=== PATIENT | male | born 1980 | race Caucasian/White ===

== ENCOUNTER 2020-09-03 12:30 | Inpatient (IN) | payer OTHER ==
[2020-09-03 13:57] VITALS: BMI 34.9
[2020-09-03] MEDS ORDERED: METHOCARBAMOL 500 MG TABLET PO PRN (14:20)
[2020-09-03] MEDS ORDERED: ACETAMINOPHEN 325 MG TABLET (FP) PO PRN ×2 (14:20)
[2020-09-03] MEDS ORDERED: MAG HYDROX/AL HYDROX/SIMETH 30 ML UNIT-DOSE CUP PO PRN (14:20)
[2020-09-03] MEDS ORDERED: ONDANSETRON *ODT* 4 MG TABLET SL PRN (14:20)
[2020-09-03] MEDS ORDERED: MENTHOL/PHENOL 1 EACH UD MM PRN (14:20)
[2020-09-03] MEDS ORDERED: MAGNESIUM CITRATE 300 ML BOTTLE PO PRN (14:20)
[2020-09-03] MEDS ORDERED: BISMUTH SUBSALICYLATE 524 MG/30 ML UD PO PRN (14:20)
[2020-09-03] MEDS ORDERED: MAGNESIUM HYDROX 2400MG/30ML ORAL SUSPENSION 30 ML CUP PO PRN (14:20)
[2020-09-03] MEDS ORDERED: NICOTINE POLACRILEX 2 MG GUM BUC PRN (14:20)
[2020-09-03] MEDS ORDERED: IBUPROFEN 400 MG TABLET (FP) PO PRN (14:20)
[2020-09-03] MEDS ORDERED: chlordiazePOXIDE HCL 25 MG CAPSULE PO PRN (14:26)
[2020-09-03 17:15] LABS: HEMATOCRIT 41.1 % (35.4-49); HEMOGLOBIN 13.1 GM/dL (11.7-16.9); MCH 25.5 pg (25.7-33.7); MCHC 31.9 g/dl (32.0-35.9); MEAN PLT VOLUME 9.7 fl (7.5-11.1); PLATELET COUNT 243 K/MM3 (134-434); RBC 5.14 M/mm3 (4.00-5.60); RDW 22.1 % (11.9-15.9); WHITE BLOOD COUNT 10.2 K/mm3 (4.0-10.0)
[2020-09-03 17:17] LABS: POTASSIUM 4.2 mmol/L (3.5-5.1)
[2020-09-03 17:21] LABS: CALCIUM 8.9 mg/dL (8.5-10.1)
[2020-09-03 17:22] LABS: ALBUMIN 3.8 g/dl (3.4-5.0); BLOOD UREA NITROGEN 8.3 mg/dL (7-18)
[2020-09-03 17:27] LABS: BILIRUBIN,TOTAL 0.3 mg/dL (0.2-1); TOT PROT 8.7 g/dl (6.4-8.2)
[2020-09-03] MEDS: hydrOXYzine PAMOATE 25 MG CAPSULE (FP) PO SCH ×2 (17:41→22:13)
[2020-09-03] MEDS: chlordiazePOXIDE HCL 25 MG CAPSULE PO SCH ×2 (17:42→22:13)
[2020-09-03 18:12] LABS: HIV INTERPRETATION NEGATIVE (NEGATIVE)
[2020-09-03] MEDS: THIAMINE HCL 100 MG TABLET (FP) PO SCH (22:13)
[2020-09-03] MEDS: MELATONIN 5 MG TABLETS PO SCH (22:37)
[2020-09-04] MEDS: hydrOXYzine PAMOATE 25 MG CAPSULE (FP) PO SCH ×5 (05:31→22:08)
[2020-09-04] MEDS: chlordiazePOXIDE HCL 25 MG CAPSULE PO SCH ×4 (05:31→22:08)
[2020-09-04] MEDS: PRENATAL VITAMINS W/ FOLIC ACID TABLET (FP) PO SCH (10:04)
[2020-09-04] MEDS: NICOTINE 21 MG/24 HOURS TOPICAL PATCH TD SCH (10:04)
[2020-09-04] MEDS: THIAMINE HCL 100 MG TABLET (FP) PO SCH (22:08)
[2020-09-04] MEDS: MELATONIN 5 MG TABLETS PO SCH (22:08)
[2020-09-05] MEDS: hydrOXYzine PAMOATE 25 MG CAPSULE (FP) PO SCH ×5 (05:46→22:20)
[2020-09-05] MEDS: chlordiazePOXIDE HCL 25 MG CAPSULE PO SCH ×4 (05:47→22:20)
[2020-09-05] MEDS: PRENATAL VITAMINS W/ FOLIC ACID TABLET (FP) PO SCH (10:12)
[2020-09-05] MEDS: NICOTINE 21 MG/24 HOURS TOPICAL PATCH TD SCH (10:14)
[2020-09-05] MEDS: MELATONIN 5 MG TABLETS PO SCH (22:20)
[2020-09-05] MEDS: THIAMINE HCL 100 MG TABLET (FP) PO SCH (22:20)
[2020-09-06] MEDS ORDERED: chlordiazePOXIDE HCL 10 MG CAPSULE PO PRN
[2020-09-06] MEDS: chlordiazePOXIDE HCL 10 MG CAPSULE PO SCH ×4 (05:45→22:32)
[2020-09-06] MEDS: hydrOXYzine PAMOATE 25 MG CAPSULE (FP) PO SCH ×5 (05:45→22:32)
[2020-09-06] MEDS: PRENATAL VITAMINS W/ FOLIC ACID TABLET (FP) PO SCH (10:22)
[2020-09-06] MEDS: NICOTINE 21 MG/24 HOURS TOPICAL PATCH TD SCH (10:23)
[2020-09-06] MEDS: THIAMINE HCL 100 MG TABLET (FP) PO SCH (22:32)
[2020-09-06] MEDS: MELATONIN 5 MG TABLETS PO SCH (22:32)
[2020-09-07] MEDS: chlordiazePOXIDE HCL 10 MG CAPSULE PO SCH ×2 (06:32→18:09)
[2020-09-07] MEDS: hydrOXYzine PAMOATE 25 MG CAPSULE (FP) PO SCH ×5 (06:33→22:33)
[2020-09-07] MEDS: NICOTINE 21 MG/24 HOURS TOPICAL PATCH TD SCH (10:22)
[2020-09-07] MEDS: PRENATAL VITAMINS W/ FOLIC ACID TABLET (FP) PO SCH (10:22)
[2020-09-07] MEDS ORDERED: cloNIDine HCL 0.1 MG TABLET PO PRN (10:40)
[2020-09-07 16:15] LABS: EPI CELLS 5 /uL (0-25.1); HYALINE CASTS 0 /uL (0-3.1); URINE APPEARANCE CLEAR; URINE BACTERIA 93 /uL (0-1359); URINE BILIRUBIN NEGATIVE (NEGATIVE); URINE COLOR YELLOW; URINE GLUCOSE (UA) NEGATIVE (NEGATIVE); URINE KETONE NEGATIVE (NEGATIVE); URINE LEUK ESTERASE TRACE (NEGATIVE); URINE NITRITE NEGATIVE (NEGATIVE); URINE PROTEIN NEGATIVE (NEGATIVE); URINE RBC 1 /uL (0-23.9); URINE UROBILINOGEN 0.2 mg/dL (0.2-1.0); URINE WBC 15 /uL (0-25.8)
[2020-09-07] MEDS: MELATONIN 5 MG TABLETS PO SCH (22:33)
[2020-09-07] MEDS: THIAMINE HCL 100 MG TABLET (FP) PO SCH (22:33)
[2020-09-08] MEDS ORDERED: chlordiazePOXIDE HCL 10 MG CAPSULE PO ONE (05:00)
[2020-09-08] MEDS: hydrOXYzine PAMOATE 25 MG CAPSULE (FP) PO SCH (06:07)
[2020-09-08 11:17] VITALS: BP 123/66; PULSE 109; TEMP 97.8
== END 2020-09-08 10:20 | disposition home or self-care (01) | DRG 775 ==
LOC: YASAS 12:30 → Y6N 15:58
PROVIDERS: ADMIT Allergy & Immunology; ATTEND Allergy & Immunology
PROC: HZ2ZZZZ Detoxification Services for Substance Abuse Treatment (ICD-10-PCS; principal; 2020-09-03)
DX: F10.230 Alcohol dependence with withdrawal, uncomplicated (principal); F17.213 Nicotine dependence, cigarettes, with withdrawal; F19.24 Other psychoactive substance dependence with psychoactive substance-induced mood disorder; Z98.84 Bariatric surgery status
CPT/HCPCS: 36415; 80053; 81003; 85027; 85660; 86780; 87389; 93005; 93010; C9803; U0003

== ENCOUNTER 2020-12-18 15:05 | Emergency (ER) | payer OTHER ==
[2020-12-18 15:15] VITALS: BP 127/84; PULSE 92; TEMP 98.3; BMI 34.9
[2020-12-18] MEDS ORDERED: KETOROLAC TROMETHAMINE 30 MG/1 ML VIAL IM ONE (15:37)
[2020-12-18] MEDS ORDERED: METHOCARBAMOL 500 MG TABLET PO ONE (15:37)
[2020-12-18] MEDS ORDERED: METHOCARBAMOL 500 MG TABLET ONE (15:39)
[2020-12-18] MEDS ORDERED: KETOROLAC TROMETHAMINE 30 MG/1 ML VIAL ONE (15:39)
== END 2020-12-18 16:03 | disposition home or self-care (01) ==
LOC: JERFT 15:05
PROC: 3E0233Z Introduction of Anti-inflammatory into Muscle, Percutaneous Approach (ICD-10-PCS; principal; 2020-12-18)
DX: M25.60 Stiffness of unspecified joint, not elsewhere classified (principal)
CPT/HCPCS: 99284-25

== ENCOUNTER 2022-09-18 14:17 | Observation (INO) | payer OTHER ==
[2022-09-18 16:16] LABS: EOS % 0.4 % (0-4.5); HEMATOCRIT 21.6 % (35.4-49); LYMPH % 28.7 % (8-40); MCHC 28.2 g/dl (32.0-35.9); MEAN CELL VOLUME 58.9 fl (80-96); MEAN PLT VOLUME 8.1 fl (7.5-11.1); MONO % 9.9 % (3.8-10.2); PLATELET COUNT 199 10^3/uL (134-434); RBC 3.67 M/mm3 (4.00-5.60); RDW 24.9 % (11.9-15.9); WHITE BLOOD COUNT 5.5 K/mm3 (4.0-10.0)
[2022-09-18 16:19] LABS: MCH 16.6 pg (25.7-33.7)
[2022-09-18 16:20] LABS: HEMOGLOBIN 6.1 GM/dL (11.7-16.9)
[2022-09-18 16:25] LABS: INR 1.23 (0.83-1.09); PROTHROMBIN TIME (PATIENT) 14.2 SEC (9.7-13.0)
[2022-09-18 16:42] LABS: ANISOCYTOSIS 3+; MACROCYTOSIS 0; OVALOCYTE 1+; TARGET CELLS 2+; TEAR DROP CELLS 1+
[2022-09-18 16:44] LABS: CALCIUM 8.3 mg/dL (8.5-10.1)
[2022-09-18 16:45] LABS: ALBUMIN 3.1 g/dl (3.4-5.0); BLOOD UREA NITROGEN 6.6 mg/dL (7-18)
[2022-09-18 16:48] LABS: CREATININE 0.7 mg/dL (0.55-1.3)
[2022-09-18 16:49] LABS: BILIRUBIN,TOTAL 0.5 mg/dL (0.2-1); TOT PROT 7.2 g/dl (6.4-8.2)
[2022-09-19] MEDS: PANTOPRAZOLE SODIUM 40 MG VIAL IVPUSH SCH ×2 (00:04→09:17)
[2022-09-19 04:52] VITALS: RESP 18
[2022-09-19] MEDS ORDERED: IRON SUCROSE INJECTION 300 MG in SODIUM CHLORIDE 235 ML IVPB ONE (09:00)
[2022-09-19 09:41] LABS: CALCIUM 8.3 mg/dL (8.5-10.1)
[2022-09-19 09:42] LABS: BLOOD UREA NITROGEN 6.3 mg/dL (7-18); HEMATOCRIT 25.1 % (35.4-49); HEMOGLOBIN 7.4 GM/dL (11.7-16.9); MCHC 29.6 g/dl (32.0-35.9); MEAN CELL VOLUME 61.2 fl (80-96); RDW 26.4 % (11.9-15.9); WHITE BLOOD COUNT 3.8 K/mm3 (4.0-10.0)
[2022-09-19 09:46] LABS: CREATININE 0.9 mg/dL (0.55-1.3); MCH 18.1 pg (25.7-33.7)
[2022-09-19 09:47] LABS: MEAN PLT VOLUME 9.4 fl (7.5-11.1); PLATELET COUNT 192 10^3/uL (134-434)
[2022-09-19 11:12] LABS: ANISOCYTOSIS 3+; MACROCYTOSIS 0; OVALOCYTE 2+; TARGET CELLS 2+
[2022-09-19 15:08] LABS: HEMATOCRIT 25.8 % (35.4-49); HEMOGLOBIN 7.7 GM/dL (11.7-16.9); MCHC 29.8 g/dl (32.0-35.9); RBC 4.16 M/mm3 (4.00-5.60); RDW 25.9 % (11.9-15.9); WHITE BLOOD COUNT 4.3 K/mm3 (4.0-10.0)
[2022-09-19 15:16] LABS: MCH 18.5 pg (25.7-33.7); MEAN PLT VOLUME 9.8 fl (7.5-11.1); PLATELET COUNT 227 10^3/uL (134-434)
[2022-09-19 17:17] VITALS: BP 120/68; PULSE 78; TEMP 98
== END 2022-09-19 18:00 | disposition home or self-care (01) ==
LOC: JER 14:17 → JERBED 16:55 → J6S 21:51
PROVIDERS: ADMIT Internal Medicine; ATTEND Internal Medicine
PROC: 3E033GC Introduction of Other Therapeutic Substance into Peripheral Vein, Percutaneous Approach (ICD-10-PCS; principal; 2022-09-18)
PROC: 30233N1 Transfusion of Nonautologous Red Blood Cells into Peripheral Vein, Percutaneous Approach (ICD-10-PCS; 2022-09-18)
DX: D64.9 Anemia, unspecified (principal); D50.9 Iron deficiency anemia, unspecified; Z98.84 Bariatric surgery status; R42 Dizziness and giddiness; F10.230 Alcohol dependence with withdrawal, uncomplicated; Z88.6 Allergy status to analgesic agent
CPT/HCPCS: 0241U-QW; 36415; 36430; 80048; 80053; 82272; 82728; 83540; 83550; 84466; 85025; 85027; 85610; 85730; 86850; 86900; 86901; 86922; 93005; 93010; 96365; 96375; 99285-25; G0378; J1756; P9038; P9058

== ENCOUNTER 2022-11-19 17:21 | Inpatient (IN) | payer OTHER ==
[2022-11-19 19:15] VITALS: BMI 30.4
[2022-11-19] MEDS ORDERED: IBUPROFEN 400 MG TABLET (FP) PO PRN (20:05)
[2022-11-19] MEDS ORDERED: ACETAMINOPHEN 325 MG TABLET (FP) PO PRN (20:05)
[2022-11-19] MEDS ORDERED: IBUPROFEN 600 MG TABLET (FP) PO PRN (20:05)
[2022-11-19] MEDS ORDERED: DICYCLOMINE HCL 10 MG CAPSULE PO PRN (20:05)
[2022-11-19] MEDS ORDERED: ONDANSETRON *ODT* 4 MG TABLET SL PRN (20:05)
[2022-11-19] MEDS ORDERED: guaiFENesin 600 MG TABLET.ER (FP) PO PRN (20:05)
[2022-11-19] MEDS ORDERED: MAG HYDROX/AL HYDROX/SIMETH 30 ML UNIT-DOSE CUP PO PRN (20:05)
[2022-11-19] MEDS ORDERED: BENZOCAINE/MENTHOL (CHLORASEPTIC ) LOZENGE MM PRN (20:05)
[2022-11-19] MEDS ORDERED: BISMUTH SUBSALICYLATE 524 MG/30 ML PO PRN (20:05)
[2022-11-19] MEDS ORDERED: METHOCARBAMOL 500 MG TABLET PO PRN (20:05)
[2022-11-19] MEDS ORDERED: NICOTINE 10 MG CARTRIDGE (INHALER) IH PRN (20:05)
[2022-11-19] MEDS ORDERED: hydrOXYzine PAMOATE 25 MG CAPSULE (FP) PO PRN (20:05)
[2022-11-19] MEDS ORDERED: diazePAM 5 MG TABLET PO PRN (20:05)
[2022-11-19] MEDS ORDERED: MAGNESIUM HYDROX 2400MG/30ML ORAL SUSPENSION 30 ML CUP PO PRN (20:05)
[2022-11-19] MEDS ORDERED: BENZONATATE 200 MG CAPSULE PO PRN (20:05)
[2022-11-19] MEDS ORDERED: NALOXONE HCL (KLOXXADO) 8 MG SPRAY NS PRN (20:05)
[2022-11-19] MEDS ORDERED: LOPERAMIDE HCL 2 MG CAPSULE PO PRN (20:05)
[2022-11-19] MEDS ORDERED: POLYETHYLENE GLYCOL (HEALTHYLAX) 3350 17 GM PACKET PO PRN (20:05)
[2022-11-19] MEDS ORDERED: NALOXONE HCL 0.4 MG/ML VIAL IM PRN (20:05)
[2022-11-19] MEDS: MELATONIN 5 MG TABLETS PO SCH (22:21)
[2022-11-19] MEDS: THIAMINE HCL 100 MG TABLET (FP) PO SCH (22:21)
[2022-11-19] MEDS: diazePAM 5 MG TABLET PO SCH (22:22)
[2022-11-20] MEDS: diazePAM 5 MG TABLET PO SCH ×4 (05:21→22:24)
[2022-11-20 09:22] LABS: HEMATOCRIT 31.7 % (35.4-49); HEMOGLOBIN 9.9 GM/dL (11.7-16.9); MCH 22.7 pg (25.7-33.7); MCHC 31.3 g/dl (32.0-35.9); MEAN CELL VOLUME 72.6 fl (80-96); MEAN PLT VOLUME 9.2 fl (7.5-11.1); PLATELET COUNT 187 10^3/uL (134-434); RBC 4.36 M/mm3 (4.00-5.60); RDW 27.7 % (11.9-15.9); WHITE BLOOD COUNT 4.3 K/mm3 (4.0-10.0)
[2022-11-20 09:33] LABS: POTASSIUM 4.6 mmol/L (3.5-5.1)
[2022-11-20 09:36] LABS: ALBUMIN 3.2 g/dl (3.4-5.0)
[2022-11-20 09:39] LABS: CALCIUM 8.8 mg/dL (8.5-10.1)
[2022-11-20 09:40] LABS: BLOOD UREA NITROGEN 8.1 mg/dL (7-18)
[2022-11-20 09:44] LABS: CREATININE 0.9 mg/dL (0.55-1.3); TOT PROT 6.9 g/dl (6.4-8.2)
[2022-11-20 09:45] LABS: BILIRUBIN,TOTAL 0.2 mg/dL (0.2-1)
[2022-11-20] MEDS: PRENATAL VITAMINS W/ FOLIC ACID TABLET (FP) PO SCH (10:11)
[2022-11-20] MEDS: MELATONIN 5 MG TABLETS PO SCH (22:24)
[2022-11-20] MEDS: THIAMINE HCL 100 MG TABLET (FP) PO SCH (22:24)
[2022-11-21] MEDS: diazePAM 5 MG TABLET PO SCH ×3 (05:23→22:29)
[2022-11-21] MEDS: FERROUS SO4 325 MG TABLET (FP) PO SCH (10:15)
[2022-11-21] MEDS: PRENATAL VITAMINS W/ FOLIC ACID TABLET (FP) PO SCH (10:16)
[2022-11-21] MEDS: MELATONIN 5 MG TABLETS PO SCH (22:29)
[2022-11-21] MEDS: THIAMINE HCL 100 MG TABLET (FP) PO SCH (22:29)
[2022-11-22] MEDS: diazePAM 5 MG TABLET PO SCH ×2 (05:35→17:45)
[2022-11-22] MEDS: FERROUS SO4 325 MG TABLET (FP) PO SCH (10:17)
[2022-11-22] MEDS: PRENATAL VITAMINS W/ FOLIC ACID TABLET (FP) PO SCH (10:17)
[2022-11-22] MEDS: THIAMINE HCL 100 MG TABLET (FP) PO SCH (22:23)
[2022-11-22] MEDS: MELATONIN 5 MG TABLETS PO SCH (22:23)
[2022-11-23] MEDS ORDERED: diazePAM 5 MG TABLET PO ONE (06:00)
[2022-11-23 06:03] VITALS: TEMP 97.6
[2022-11-23 09:46] VITALS: BP 120/63; PULSE 90; RESP 18
[2022-11-23] MEDS: FERROUS SO4 325 MG TABLET (FP) PO SCH (09:53)
[2022-11-23] MEDS: PRENATAL VITAMINS W/ FOLIC ACID TABLET (FP) PO SCH (09:53)
== END 2022-11-23 10:28 | disposition home or self-care (01) | DRG 775 ==
LOC: YASAS 17:21 → Y6N 20:24
PROVIDERS: ADMIT Allergy & Immunology; ATTEND Surgery
PROC: HZ2ZZZZ Detoxification Services for Substance Abuse Treatment (ICD-10-PCS; principal; 2022-11-19)
DX: F10.230 Alcohol dependence with withdrawal, uncomplicated (principal); F17.210 Nicotine dependence, cigarettes, uncomplicated; D50.9 Iron deficiency anemia, unspecified; Z98.84 Bariatric surgery status; Z88.5 Allergy status to narcotic agent
CPT/HCPCS: 36415; 80053; 85027; 86780; 87635; 87811

== ENCOUNTER 2022-11-25 23:55 | Emergency (ER) | payer OTHER ==
[2022-11-26 00:15] VITALS: BP 118/65; PULSE 94; RESP 18; TEMP 98.4
[2022-11-26] MEDS ORDERED: TETANUS AND DIPHTHERIA TOXOID 0.5 ML DISP.SYRIN IM ONE (00:39)
[2022-11-26] MEDS ORDERED: DIPHTH,PERTUSS(ACELL),TET 0.5 ML DISP.SYRIN IM ONE ×2 (00:48→01:09)
== END 2022-11-26 05:30 | disposition home or self-care (01) ==
LOC: JER 23:55
PROC: 3E0234Z Introduction of Serum, Toxoid and Vaccine into Muscle, Percutaneous Approach (ICD-10-PCS; principal; 2022-11-26)
DX: M25.511 Pain in right shoulder (principal); M25.551 Pain in right hip; R51.9 Headache, unspecified; S00.81XA Abrasion of other part of head, initial encounter; F10.920 Alcohol use, unspecified with intoxication, uncomplicated
CPT/HCPCS: 70450-TC; 70486-TC; 72125-TC; 73030-TC-RT-FY; 73502-TC-RT-FY; 90715; 99284-25

== ENCOUNTER 2022-11-26 06:49 | Inpatient (IN) | payer OTHER ==
[2022-11-26 06:56] VITALS: BMI 29.7
[2022-11-26] MEDS ORDERED: IBUPROFEN 600 MG TABLET (FP) PO PRN (08:22)
[2022-11-26] MEDS ORDERED: NICOTINE POLACRILEX 2 MG GUM BUC PRN (08:22)
[2022-11-26] MEDS ORDERED: POLYETHYLENE GLYCOL (HEALTHYLAX) 3350 17 GM PACKET PO PRN (08:22)
[2022-11-26] MEDS ORDERED: BENZONATATE 200 MG CAPSULE PO PRN (08:22)
[2022-11-26] MEDS ORDERED: AMMONIUM LACTATE 12% LOTION 225 GM BOTTLE TP PRN (08:22)
[2022-11-26] MEDS ORDERED: COLLOIDAL OATMEAL 1 BAR EACH TP PRN (08:22)
[2022-11-26] MEDS ORDERED: NICOTINE 10 MG CARTRIDGE (INHALER) IH PRN (08:22)
[2022-11-26] MEDS ORDERED: LOPERAMIDE HCL 2 MG CAPSULE PO PRN (08:22)
[2022-11-26] MEDS ORDERED: NALOXONE HCL (KLOXXADO) 8 MG SPRAY NS PRN (08:22)
[2022-11-26] MEDS ORDERED: IBUPROFEN 400 MG TABLET (FP) PO PRN (08:22)
[2022-11-26] MEDS ORDERED: guaiFENesin 600 MG TABLET.ER (FP) PO PRN (08:22)
[2022-11-26] MEDS ORDERED: MAGNESIUM HYDROX 2400MG/30ML ORAL SUSPENSION 30 ML CUP PO PRN (08:22)
[2022-11-26] MEDS ORDERED: BENZOCAINE/MENTHOL (CHLORASEPTIC ) LOZENGE MM PRN (08:22)
[2022-11-26] MEDS ORDERED: P-EPHED 60MG/TRIPROLIDI 2.5MG TABLET PO PRN (08:22)
[2022-11-26] MEDS ORDERED: ACETAMINOPHEN 325 MG TABLET (FP) PO PRN (08:22)
[2022-11-26] MEDS ORDERED: NALOXONE HCL 0.4 MG/ML VIAL IVPUSH PRN (08:22)
[2022-11-26] MEDS ORDERED: FERROUS SO4 325 MG TABLET (FP) PO SCH (10:00)
[2022-11-26] MEDS ORDERED: PATIENT'S OWN MEDICATION (NON-FORMULARY) (Multivitamin [Daily Vite] 1 EACH Tablet) PO SCH (10:00)
[2022-11-26] MEDS: FERROUS SO4 325 MG TABLET (FP) PO SCH (10:17)
[2022-11-26] MEDS: PRENATAL VITAMINS W/ FOLIC ACID TABLET (FP) PO SCH (10:17)
[2022-11-26] MEDS: ASCORBIC ACID 250 MG TABLET (FP) PO SCH (10:17)
[2022-11-26] MEDS: THIAMINE HCL 100 MG TABLET (FP) PO SCH (21:36)
[2022-11-27] MEDS: FERROUS SO4 325 MG TABLET (FP) PO SCH (09:49)
[2022-11-27] MEDS: PRENATAL VITAMINS W/ FOLIC ACID TABLET (FP) PO SCH (09:49)
[2022-11-27] MEDS: ASCORBIC ACID 250 MG TABLET (FP) PO SCH (09:49)
[2022-11-27 10:13] LABS: HEMATOCRIT 34.8 % (35.4-49); HEMOGLOBIN 10.8 GM/dL (11.7-16.9); MCH 22.6 pg (25.7-33.7); MCHC 30.9 g/dl (32.0-35.9); MEAN CELL VOLUME 73.3 fl (80-96); MEAN PLT VOLUME 9.3 fl (7.5-11.1); PLATELET COUNT 219 10^3/uL (134-434); RBC 4.75 M/mm3 (4.00-5.60); RDW 26.4 % (11.9-15.9); WHITE BLOOD COUNT 4.5 K/mm3 (4.0-10.0)
[2022-11-27] MEDS: MELATONIN 5 MG TABLETS PO PRN (21:28)
[2022-11-27] MEDS: THIAMINE HCL 100 MG TABLET (FP) PO SCH (21:28)
[2022-11-28] MEDS: ASCORBIC ACID 250 MG TABLET (FP) PO SCH (09:55)
[2022-11-28] MEDS: PRENATAL VITAMINS W/ FOLIC ACID TABLET (FP) PO SCH (09:55)
[2022-11-28] MEDS: FERROUS SO4 325 MG TABLET (FP) PO SCH (09:55)
[2022-11-28] MEDS: MELATONIN 5 MG TABLETS PO PRN (21:43)
[2022-11-28] MEDS: THIAMINE HCL 100 MG TABLET (FP) PO SCH (21:43)
[2022-11-29] MEDS: PRENATAL VITAMINS W/ FOLIC ACID TABLET (FP) PO SCH (09:32)
[2022-11-29] MEDS: FERROUS SO4 325 MG TABLET (FP) PO SCH (09:32)
[2022-11-29] MEDS: ASCORBIC ACID 250 MG TABLET (FP) PO SCH (09:32)
[2022-11-29] MEDS: MELATONIN 5 MG TABLETS PO PRN (21:14)
[2022-11-29] MEDS: DOCUSATE SODIUM 100 MG CAPSULE (FP) PO PRN (21:14)
[2022-11-29] MEDS: THIAMINE HCL 100 MG TABLET (FP) PO SCH (21:14)
[2022-11-30] MEDS: PRENATAL VITAMINS W/ FOLIC ACID TABLET (FP) PO SCH (09:39)
[2022-11-30] MEDS: FERROUS SO4 325 MG TABLET (FP) PO SCH (09:40)
[2022-11-30] MEDS: ASCORBIC ACID 250 MG TABLET (FP) PO SCH (10:29)
[2022-11-30] MEDS: THIAMINE HCL 100 MG TABLET (FP) PO SCH (21:38)
[2022-11-30] MEDS: DOCUSATE SODIUM 100 MG CAPSULE (FP) PO PRN (21:38)
[2022-11-30] MEDS: MELATONIN 5 MG TABLETS PO PRN (21:39)
[2022-12-01] MEDS: PRENATAL VITAMINS W/ FOLIC ACID TABLET (FP) PO SCH (09:18)
[2022-12-01] MEDS: FERROUS SO4 325 MG TABLET (FP) PO SCH (09:18)
[2022-12-01] MEDS: ASCORBIC ACID 250 MG TABLET (FP) PO SCH (09:18)
[2022-12-01] MEDS: MAG HYDROX/AL HYDROX/SIMETH 30 ML UNIT-DOSE CUP PO PRN (17:40)
[2022-12-01] MEDS: MELATONIN 5 MG TABLETS PO PRN (21:19)
[2022-12-01] MEDS: THIAMINE HCL 100 MG TABLET (FP) PO SCH (21:19)
[2022-12-02] MEDS: PRENATAL VITAMINS W/ FOLIC ACID TABLET (FP) PO SCH (10:09)
[2022-12-02] MEDS: FERROUS SO4 325 MG TABLET (FP) PO SCH (10:09)
[2022-12-02] MEDS: ASCORBIC ACID 250 MG TABLET (FP) PO SCH (10:09)
[2022-12-02] MEDS: MAG HYDROX/AL HYDROX/SIMETH 30 ML UNIT-DOSE CUP PO PRN (10:10)
[2022-12-02] MEDS: MELATONIN 5 MG TABLETS PO PRN (21:41)
[2022-12-02] MEDS: THIAMINE HCL 100 MG TABLET (FP) PO SCH (21:41)
[2022-12-03] MEDS: PRENATAL VITAMINS W/ FOLIC ACID TABLET (FP) PO SCH (09:53)
[2022-12-03] MEDS: FERROUS SO4 325 MG TABLET (FP) PO SCH (09:53)
[2022-12-03] MEDS: ASCORBIC ACID 250 MG TABLET (FP) PO SCH (09:53)
[2022-12-03] MEDS: MAG HYDROX/AL HYDROX/SIMETH 30 ML UNIT-DOSE CUP PO PRN ×2 (09:55→21:38)
[2022-12-03] MEDS: THIAMINE HCL 100 MG TABLET (FP) PO SCH (21:37)
[2022-12-03] MEDS: MELATONIN 5 MG TABLETS PO PRN (21:37)
[2022-12-04] MEDS: MAG HYDROX/AL HYDROX/SIMETH 30 ML UNIT-DOSE CUP PO PRN (09:50)
[2022-12-04] MEDS: FERROUS SO4 325 MG TABLET (FP) PO SCH (09:50)
[2022-12-04] MEDS: ASCORBIC ACID 250 MG TABLET (FP) PO SCH (09:51)
[2022-12-04] MEDS: PRENATAL VITAMINS W/ FOLIC ACID TABLET (FP) PO SCH (09:51)
[2022-12-04] MEDS: PANTOPRAZOLE 40 MG TABLET PO SCH (12:47)
[2022-12-04] MEDS: MELATONIN 5 MG TABLETS PO PRN (21:21)
[2022-12-04] MEDS: THIAMINE HCL 100 MG TABLET (FP) PO SCH (21:21)
[2022-12-05] MEDS: PANTOPRAZOLE 40 MG TABLET PO SCH (09:32)
[2022-12-05] MEDS: FERROUS SO4 325 MG TABLET (FP) PO SCH (09:32)
[2022-12-05] MEDS: ASCORBIC ACID 250 MG TABLET (FP) PO SCH (09:32)
[2022-12-05] MEDS: PRENATAL VITAMINS W/ FOLIC ACID TABLET (FP) PO SCH (09:33)
[2022-12-05] MEDS: MELATONIN 5 MG TABLETS PO PRN (21:18)
[2022-12-05] MEDS: DOCUSATE SODIUM 100 MG CAPSULE (FP) PO PRN (21:18)
[2022-12-05] MEDS: THIAMINE HCL 100 MG TABLET (FP) PO SCH (21:18)
[2022-12-06] MEDS: ASCORBIC ACID 250 MG TABLET (FP) PO SCH (09:36)
[2022-12-06] MEDS: PRENATAL VITAMINS W/ FOLIC ACID TABLET (FP) PO SCH (09:36)
[2022-12-06] MEDS: PANTOPRAZOLE 40 MG TABLET PO SCH (09:36)
[2022-12-06] MEDS: FERROUS SO4 325 MG TABLET (FP) PO SCH (09:36)
[2022-12-06] MEDS: MELATONIN 5 MG TABLETS PO PRN (21:17)
[2022-12-06] MEDS: THIAMINE HCL 100 MG TABLET (FP) PO SCH (21:17)
[2022-12-06] MEDS: DOCUSATE SODIUM 100 MG CAPSULE (FP) PO PRN (21:17)
[2022-12-07] MEDS: ASCORBIC ACID 250 MG TABLET (FP) PO SCH (10:11)
[2022-12-07] MEDS: PRENATAL VITAMINS W/ FOLIC ACID TABLET (FP) PO SCH (10:11)
[2022-12-07] MEDS: PANTOPRAZOLE 40 MG TABLET PO SCH (10:11)
[2022-12-07] MEDS: FERROUS SO4 325 MG TABLET (FP) PO SCH (10:11)
[2022-12-07] MEDS: THIAMINE HCL 100 MG TABLET (FP) PO SCH (21:12)
[2022-12-07] MEDS: MELATONIN 5 MG TABLETS PO PRN (21:12)
[2022-12-08 06:39] VITALS: TEMP 97.4
[2022-12-08] MEDS: ASCORBIC ACID 250 MG TABLET (FP) PO SCH (10:16)
[2022-12-08] MEDS: FERROUS SO4 325 MG TABLET (FP) PO SCH (10:16)
[2022-12-08] MEDS: PANTOPRAZOLE 40 MG TABLET PO SCH (10:16)
[2022-12-08] MEDS: PRENATAL VITAMINS W/ FOLIC ACID TABLET (FP) PO SCH (10:17)
[2022-12-08] MEDS: THIAMINE HCL 100 MG TABLET (FP) PO SCH (21:08)
[2022-12-08] MEDS: MELATONIN 5 MG TABLETS PO PRN (21:08)
[2022-12-09] MEDS: PRENATAL VITAMINS W/ FOLIC ACID TABLET (FP) PO SCH (09:59)
[2022-12-09] MEDS: ASCORBIC ACID 250 MG TABLET (FP) PO SCH (09:59)
[2022-12-09] MEDS: FERROUS SO4 325 MG TABLET (FP) PO SCH (09:59)
[2022-12-09] MEDS: PANTOPRAZOLE 40 MG TABLET PO SCH (09:59)
[2022-12-09] MEDS: MELATONIN 5 MG TABLETS PO PRN (21:26)
[2022-12-09] MEDS: THIAMINE HCL 100 MG TABLET (FP) PO SCH (21:26)
[2022-12-10 06:40] VITALS: BP 103/69; PULSE 71; RESP 20
[2022-12-10] MEDS: PANTOPRAZOLE 40 MG TABLET PO SCH (09:21)
[2022-12-10] MEDS: FERROUS SO4 325 MG TABLET (FP) PO SCH (09:21)
[2022-12-10] MEDS: PRENATAL VITAMINS W/ FOLIC ACID TABLET (FP) PO SCH (09:21)
[2022-12-10] MEDS: ASCORBIC ACID 250 MG TABLET (FP) PO SCH (09:22)
== END 2022-12-10 09:24 | disposition home or self-care (01) | DRG 775 ==
LOC: YASAS 06:49 → Y3E 09:27
PROVIDERS: ADMIT Allergy & Immunology; ATTEND Psychiatry & Neurology Pain Medicine
PROC: HZ2ZZZZ Detoxification Services for Substance Abuse Treatment (ICD-10-PCS; principal; 2022-11-26)
DX: F10.20 Alcohol dependence, uncomplicated (principal); F17.210 Nicotine dependence, cigarettes, uncomplicated; F41.9 Anxiety disorder, unspecified; K21.9 Gastro-esophageal reflux disease without esophagitis; M54.50 Low back pain, unspecified; G89.29 Other chronic pain; Z88.5 Allergy status to narcotic agent
CPT/HCPCS: 36415; 70450-TC; 70486-TC; 72125-TC; 73030-TC-RT-FY; 73502-TC-RT-FY; 85027; 87635; 90715

== ENCOUNTER 2023-03-15 04:54 | Day surgery (SDC) | payer OTHER ==
[2023-03-14 09:58] VITALS: BMI 30.7
[2023-03-15 10:46] VITALS: TEMP 98.9
[2023-03-15 12:30] VITALS: PULSE 62
[2023-03-15 12:33] VITALS: BP 112/67; RESP 17
== END 2023-03-15 12:50 | disposition home or self-care (01) ==
LOC: JASU-ENDO 04:54
PROVIDERS: ATTEND Internal Medicine Gastroenterology
PROC: 0DJD8ZZ Inspection of Lower Intestinal Tract, Via Natural or Artificial Opening Endoscopic (ICD-10-PCS; principal; 2023-03-15 11:15)
DX: Z12.11 Encounter for screening for malignant neoplasm of colon (principal); Z80.0 Family history of malignant neoplasm of digestive organs; K64.8 Other hemorrhoids

== ENCOUNTER 2023-03-22 04:28 | Inpatient (IN) | payer OTHER ==
[2023-03-22] MEDS ORDERED: PANTOPRAZOLE SODIUM 40 MG VIAL IVPUSH ONE (12:37)
[2023-03-22] MEDS ORDERED: PANTOPRAZOLE SODIUM 80 MG in SODIUM CHLORIDE 100 ML IVPB SCH (12:45)
[2023-03-22 13:14] LABS: BASO % 0.7 % (0-2.0); EOS % 0.6 % (0-4.5); HEMATOCRIT 36.8 % (35.4-49); HEMOGLOBIN 12.2 GM/dL (11.7-16.9); LYMPH % 13.3 % (8-40); MCH 27.1 pg (25.7-33.7); MEAN CELL VOLUME 82.1 fl (80-96); MEAN PLT VOLUME 8.8 fl (7.5-11.1); NEUT % 78.4 % (42.8-82.8); PLATELET COUNT 155 10^3/uL (134-434); RBC 4.49 M/mm3 (4.00-5.60); RDW 19.3 % (11.9-15.9); WHITE BLOOD COUNT 7.2 K/mm3 (4.0-10.0)
[2023-03-22] MEDS ORDERED: ACETAMINOPHEN 500 MG TABLET (FP) PO PRN (13:14)
[2023-03-22] MEDS ORDERED: chlordiazePOXIDE HCL 25 MG CAPSULE PO PRN (13:14)
[2023-03-22 13:20] LABS: INR 1.14 (0.83-1.09); PROTHROMBIN TIME (PATIENT) 13.2 SEC (9.7-13.0)
[2023-03-22 13:23] LABS: ACTIVATED PTT 30.7 SECONDS (25.2-36.5)
[2023-03-22] MEDS: SUCRALFATE 1 GM/10 ML UNIT DOSE CUPS PO SCH ×2 (13:23→16:38)
[2023-03-22] MEDS: PANTOPRAZOLE SODIUM 160 MG in SODIUM CHLORIDE 290 ML IVPB SCH (14:00)
[2023-03-22 14:11] LABS: POTASSIUM 4.6 mmol/L (3.5-5.1)
[2023-03-22 14:15] LABS: ALBUMIN 3.3 g/dl (3.4-5.0); BLOOD UREA NITROGEN 11.1 mg/dL (7-18); CALCIUM 8.7 mg/dL (8.5-10.1)
[2023-03-22 14:18] LABS: CREATININE 0.8 mg/dL (0.55-1.3)
[2023-03-22 14:20] LABS: TOT PROT 7.2 g/dl (6.4-8.2)
[2023-03-22] MEDS: DEXTROSE 5%-LACTATED RINGERS 1,000 ML IV SCH ×2 (15:00→17:40)
[2023-03-22 16:09] VITALS: BMI 30.4
[2023-03-23] MEDS: SUCRALFATE 1 GM/10 ML UNIT DOSE CUPS PO SCH ×3 (06:22→18:14)
[2023-03-23 10:16] LABS: BASO % 0.8 % (0-2.0); EOS % 3.8 % (0-4.5); HEMATOCRIT 37.2 % (35.4-49); HEMOGLOBIN 12.2 GM/dL (11.7-16.9); LYMPH % 27.5 % (8-40); MCH 27.2 pg (25.7-33.7); MCHC 32.7 g/dl (32.0-35.9); MEAN CELL VOLUME 83.3 fl (80-96); MEAN PLT VOLUME 9.2 fl (7.5-11.1); MONO % 11.3 % (3.8-10.2); NEUT % 56.6 % (42.8-82.8); PLATELET COUNT 148 10^3/uL (134-434); RBC 4.46 M/mm3 (4.00-5.60); RDW 19.1 % (11.9-15.9)
[2023-03-23] MEDS: PANTOPRAZOLE SODIUM 160 MG in SODIUM CHLORIDE 290 ML IVPB SCH (10:17)
[2023-03-23 10:52] LABS: POTASSIUM 4.1 mmol/L (3.5-5.1)
[2023-03-23 10:53] LABS: CALCIUM 8.7 mg/dL (8.5-10.1)
[2023-03-23 10:55] LABS: BLOOD UREA NITROGEN 6.6 mg/dL (7-18)
[2023-03-23 10:59] LABS: CREATININE 0.8 mg/dL (0.55-1.3)
[2023-03-23 11:27] LABS: MAGNESIUM 1.7 mg/dL (1.8-2.4)
[2023-03-23 11:30] LABS: PHOSPHOROUS 3.2 mg/dL (2.5-4.9)
[2023-03-23] MEDS ORDERED: MAGNESIUM SULF 50% (8.12 MEQ/2 ML-1 GM VIAL) IVPB ONE (13:45)
[2023-03-23] MEDS: DEXTROSE 5%-LACTATED RINGERS 1,000 ML IV SCH (13:46)
[2023-03-23 20:54] LABS: BASO % 0.8 % (0-2.0); EOS % 3.4 % (0-4.5); HEMATOCRIT 36.8 % (35.4-49); LYMPH % 35.5 % (8-40); MCHC 32.7 g/dl (32.0-35.9); MEAN CELL VOLUME 82.7 fl (80-96); MEAN PLT VOLUME 9.3 fl (7.5-11.1); MONO % 11.1 % (3.8-10.2); NEUT % 49.2 % (42.8-82.8); PLATELET COUNT 142 10^3/uL (134-434); RBC 4.45 M/mm3 (4.00-5.60); RDW 18.6 % (11.9-15.9); WHITE BLOOD COUNT 4.3 K/mm3 (4.0-10.0)
[2023-03-24] MEDS: DEXTROSE 5%-LACTATED RINGERS 1,000 ML IV SCH ×2 (02:36→16:23)
[2023-03-24] MEDS: PANTOPRAZOLE SODIUM 160 MG in SODIUM CHLORIDE 290 ML IVPB SCH (06:53)
[2023-03-24] MEDS: SUCRALFATE 1 GM/10 ML UNIT DOSE CUPS PO SCH ×4 (06:53→16:23)
[2023-03-24 10:38] LABS: BASO % 0.9 % (0-2.0); HEMATOCRIT 35.9 % (35.4-49); HEMOGLOBIN 11.8 GM/dL (11.7-16.9); LYMPH % 27.9 % (8-40); MCH 27.3 pg (25.7-33.7); MEAN CELL VOLUME 82.8 fl (80-96); MEAN PLT VOLUME 9.2 fl (7.5-11.1); MONO % 9.3 % (3.8-10.2); NEUT % 57.9 % (42.8-82.8); PLATELET COUNT 134 10^3/uL (134-434); RBC 4.33 M/mm3 (4.00-5.60); RDW 18.6 % (11.9-15.9); WHITE BLOOD COUNT 3.8 K/mm3 (4.0-10.0)
[2023-03-24 11:29] LABS: POTASSIUM 3.9 mmol/L (3.5-5.1)
[2023-03-24 11:46] LABS: BLOOD UREA NITROGEN 4.3 mg/dL (7-18); CALCIUM 8.7 mg/dL (8.5-10.1); MAGNESIUM 1.8 mg/dL (1.8-2.4)
[2023-03-24 11:49] LABS: CREATININE 0.8 mg/dL (0.55-1.3); PHOSPHOROUS 3.9 mg/dL (2.5-4.9)
[2023-03-24] MEDS: FERROUS SO4 325 MG TABLET (FP) PO SCH (17:27)
[2023-03-24 19:16] VITALS: RESP 20
[2023-03-25] MEDS: PANTOPRAZOLE SODIUM 160 MG in SODIUM CHLORIDE 290 ML IVPB SCH ×2 (01:25→08:27)
[2023-03-25] MEDS: SUCRALFATE 1 GM/10 ML UNIT DOSE CUPS PO SCH ×3 (06:26→16:58)
[2023-03-25] MEDS: FERROUS SO4 325 MG TABLET (FP) PO SCH (10:01)
[2023-03-25 11:31] LABS: HEMATOCRIT 35.1 % (35.4-49); HEMOGLOBIN 11.5 GM/dL (11.7-16.9); MCH 27.5 pg (25.7-33.7); MCHC 32.8 g/dl (32.0-35.9); MEAN CELL VOLUME 83.9 fl (80-96); MEAN PLT VOLUME 9.2 fl (7.5-11.1); PLATELET COUNT 133 10^3/uL (134-434); RBC 4.19 M/mm3 (4.00-5.60); RDW 18.3 % (11.9-15.9); WHITE BLOOD COUNT 4.3 K/mm3 (4.0-10.0)
[2023-03-25 11:53] LABS: POTASSIUM 4.4 mmol/L (3.5-5.1)
[2023-03-25 12:46] LABS: ALBUMIN 3.2 g/dl (3.4-5.0)
[2023-03-25 12:49] LABS: CALCIUM 8.8 mg/dL (8.5-10.1); CREATININE 0.8 mg/dL (0.55-1.3); PHOSPHOROUS 4.1 mg/dL (2.5-4.9)
[2023-03-25 12:50] LABS: BILIRUBIN,TOTAL 0.4 mg/dL (0.2-1); BLOOD UREA NITROGEN 4.6 mg/dL (7-18)
[2023-03-25 12:51] LABS: TOT PROT 7.2 g/dl (6.4-8.2)
[2023-03-25 14:26] VITALS: BP 103/50; PULSE 77; TEMP 98.4
== END 2023-03-25 18:04 | disposition home or self-care (01) | DRG 241 ==
LOC: JASU-ENDO 04:28 → J2C 13:11 → J6S 14:56 → UNDODISIN 15:05 → J6S 20:32
PROVIDERS: ADMIT Internal Medicine; ATTEND Internal Medicine
PROC: 0DB68ZX Excision of Stomach, Via Natural or Artificial Opening Endoscopic, Diagnostic (ICD-10-PCS; principal; 2023-03-22 11:00)
PROC: 0DB68ZX Excision of Stomach, Via Natural or Artificial Opening Endoscopic, Diagnostic (ICD-10-PCS; 2023-03-24)
DX: K25.9 Gastric ulcer, unspecified as acute or chronic, without hemorrhage or perforation (principal); K28.9 Gastrojejunal ulcer, unspecified as acute or chronic, without hemorrhage or perforation; D50.9 Iron deficiency anemia, unspecified; F10.10 Alcohol abuse, uncomplicated; F17.210 Nicotine dependence, cigarettes, uncomplicated; K44.9 Diaphragmatic hernia without obstruction or gangrene
CPT/HCPCS: 36415; 80048; 80053; 82728; 83540; 83550; 83735; 84100; 84466; 85025; 85027; 85610; 85730; 86850; 86900; 86901; 86922; 88305-TC

== ENCOUNTER 2023-04-12 21:18 | Emergency (ER) | payer OTHER ==
[2023-04-12 21:44] VITALS: BMI 29.7
[2023-04-13 05:32] VITALS: BP 118/62; PULSE 86; RESP 16; TEMP 98.1
== END 2023-04-13 05:34 | disposition home or self-care (01) ==
LOC: JER 21:18
DX: F10.220 Alcohol dependence with intoxication, uncomplicated (principal); Y90.9 Presence of alcohol in blood, level not specified
CPT/HCPCS: 99282-25

== ENCOUNTER 2023-05-31 04:31 | Day surgery (SDC) | payer OTHER ==
[2023-05-31 09:17] VITALS: BMI 31.1
[2023-05-31 09:56] VITALS: RESP 20
[2023-05-31 10:39] VITALS: BP 135/70; PULSE 70; TEMP 98
== END 2023-05-31 11:30 | disposition home or self-care (01) ==
LOC: JASU-ENDO 04:31
PROVIDERS: ATTEND Internal Medicine Gastroenterology
PROC: 0DB78ZX Excision of Stomach, Pylorus, Via Natural or Artificial Opening Endoscopic, Diagnostic (ICD-10-PCS; 2023-05-31)
PROC: 0DB68ZX Excision of Stomach, Via Natural or Artificial Opening Endoscopic, Diagnostic (ICD-10-PCS; 2023-05-31)
PROC: 0DB58ZX Excision of Esophagus, Via Natural or Artificial Opening Endoscopic, Diagnostic (ICD-10-PCS; principal; 2023-05-31 09:15)
DX: K28.9 Gastrojejunal ulcer, unspecified as acute or chronic, without hemorrhage or perforation (principal); Z98.84 Bariatric surgery status; K29.50 Unspecified chronic gastritis without bleeding; K21.00 Gastro-esophageal reflux disease with esophagitis, without bleeding
CPT/HCPCS: 88305-TC; 88312-TC; 88342-TC